=== PATIENT | female | born 1960 | race Caucasian/White ===

== ENCOUNTER 2017-11-29 21:37 | Emergency (ER) | payer OTHER ==
[2017-11-29 22:02] VITALS: BP 92/72; PULSE 74; RESP 16; TEMP 98.4; O2SAT 94
[2017-11-29] MEDS ORDERED: AZITHROMYCIN 250 MG TAB PO ONE (22:16)
[2017-11-29] MEDS ORDERED: BENZONATATE 100 MG CAP PO ONE (22:17)
[2017-11-29] MEDS ORDERED: LEVALBUTEROL 0.63 MG/3 ML DEYVIAL IH ONE (22:17)
--- NOTE | 2017-11-29 22:20 | EDPHY ---
H & P Time Seen by Provider: 11/29/17 21:54 HPI/ROS: This patient reports a 4 day history of coughing occasionally productive of sputum with onset of yellow sputum over the past 4 hr. She was seen yesterday at a primary care physician's office and was tested for pertussis and influenza. Influenza is negative the pertussis is pending. The patient had an episode of paroxysms of coughing and feeling of air hunger between the coughing and describes a whooping cough type episode shortly prior to arrival. She reports associated ongoing clear coryza. She has low-grade fevers up to 100 degrees. She was anxious about the paroxysms of cough and air hunger that occurred shortly prior to arrival. At baseline she does not have significant dyspnea however. ROS: No high fevers or chills. HEENT: She had a sore throat 1st 24 hr attributed to frequent coughing that is now minimal. No dysphonia. No ear pain. No 5th sinus pain Pulmonary: No hemoptysis. No pleuritic pain. Cardiovascular: Currently wearing a Holter monitor for intermittent heart palpitations but no sustained episodes of palpitations or lightheadedness. No chest pain. No leg swelling or calf pain. GI: No nausea or vomiting. No abdominal pain. No diarrhea. Integumentary: No skin rash no diaphoresis. 10 point ROS is otherwise negative Past Medical/Surgical History: Heart palpitations Otherwise healthy Baseline blood pressures is 90's systolic per pt. Smoking Status: Never smoked Physical Exam: General Appearance: Alert, no distress. Eyes: Pupils equal and round no pallor or injection. ENT, Mouth: Mucous membranes moist. Respiratory: Faint wheeze bilaterally. No rales or rhonchi appreciated. No respiratory distress. Cardiovascular: Regular rate and rhythm. No murmur gallop rub. No JVD. No peripheral edema. Neurological: GCS 15 Skin: Warm and dry, no rashes. Musculoskeletal: Neck is supple nontender. Extremities are symmetrical, full range of motion. Psychiatric: Mood and affect are normal DIFFERENTIAL DIAGNOSIS: After history and physical exam differential diagnosis was considered for pertussis or other atypical bacterial bronchitis, viral bronchitis, URI with cough Constitutional: Initial Vital Signs Temperature (C) 36.9 C 11/29/17 21:57 Heart Rate 74 11/29/17 21:57 Respiratory Rate 16 11/29/17 21:57 Blood Pressure 92/72 L 11/29/17 21:57 O2 Sat (%) 94 11/29/17 21:57 O2 Delivery Mode Room Air Allergies/Adverse Reactions: No Known Allergies Allergy (Unverified 07/05/13 10:31) Home Medications: Medication Instructions Recorded Anxiety Medicine 07/05/13 Azithromycin [Zithromax] 250 mg PO DAILY #4 tab 11/29/17 Benzonatate [Tessalon Pearles (RX)] 100 - 200 mg PO TID PRN #20 cap 11/29/17 Levalbuterol Inhaler [Xopenex Hfa 2 puffs IH Q4 PRN #1 mdi 11/29/17 Inhaler] MDM/Departure - MDM ED Course/Re-evaluation: Xopenex neb with decreased cough Tessalon Perle p. o. Zithromax p. o. Discussion: This patient appears clinically well without toxicity respiratory distress maintaining good oxygen saturation on room air with normal respiratory rate, mild wheezing and paroxysms of cough. Clinically she seems consistent with pertussis. Will cover this with Zithromax given her increasing symptoms awaiting her pertussis studies pending from her primary care physician's office. Counseled regarding this. I do not find any evidence that would suggest pneumonia on her exam or other complicating factors. However, she understands need to return emergency department should she develop any worsening of her symptoms despite the treatment plan - Depart Disposition: Home, Routine, Self-Care Clinical Impression: Acute bronchitis Qualifiers: Bronchitis organism: unspecified organism Qualified Code(s): J20.9 - Acute bronchitis, unspecified Condition: Good Instructions: Acute Bronchitis (ED) Additional Instructions: Diagnosis: Acute bronchitis Plan: Humidifier Xopenex inhaler for cough, wheeze or shortness of breath Zithromax antibiotic Tessalon Perles for cough prevents sleep at night. Return for any significant worsening despite the treatment plan Follow up with primary care physician for any ongoing symptoms despite the plan. Prescriptions: Azithromycin [Zithromax] 250 mg PO DAILY #4 tab Benzonatate [Tessalon Pearles (RX)] 100 - 200 mg PO TID PRN #20 cap PRN Reason: cough Levalbuterol Inhaler [Xopenex Hfa Inhaler] 2 puffs IH Q4 PRN #1 mdi PRN Reason: Wheezing Referrals: Kleinke,Nicolasa T, DO [Primary Care Provider] - As per Instructions
== END 2017-11-29 22:40 | disposition home or self-care (01) ==
LOC: CED 21:37
DX: J20.9 Acute bronchitis, unspecified (principal)